=== PATIENT | male | born 1980 | race Caucasian/White ===

== ENCOUNTER 2017-08-02 11:39 | Emergency (ER) | payer MEDICARE ==
[~2017-08-02] VITALS: Ht 167.6 cm; Wt 49.9 kg
[~2017-08-02 11:39] MED LIST: AMOX500 PO; ANTOXYBENA OT; AZIT250 PO; CETI10 PO; CRUTCH2 USE; DICL75ER PO; DIPH50 PO; HYDACE5 PO; Miralax17 GM PO; Norco 5-325 Ta1 EACH PO; OXYACE5T PO; PRED20 PO; PROM25 PO; PROM25S PR; RXHYDACE PO; SULTRIDS PO; VENL37.5ER PO; Zofran Odt4 MG SL
[2017-08-02] MEDS ORDERED: Percocet 5-3251 EACH PO (12:59)
== END 2017-08-02 13:06 | disposition home or self-care (01) ==
LOC: ER 11:39
DX: S02.32XA Fracture of orbital floor, left side, initial encounter for closed fracture (principal); S02.2XXA Fracture of nasal bones, initial encounter for closed fracture; S60.221A Contusion of right hand, initial encounter; Y04.8XXA Assault by other bodily force, initial encounter
CPT/HCPCS: 70450; 73130; 99284

== ENCOUNTER 2017-08-03 03:54 | Emergency (ER) | payer MEDICARE, OTHER ==
[~2017-08-03] VITALS: Ht 162.6 cm; Wt 54.4 kg
[~2017-08-03 03:54] MED LIST changes: +Percocet 5-3251 EACH PO
== END 2017-08-03 05:12 | disposition home or self-care (01) ==
LOC: ER 03:54
DX: S02.32XD Fracture of orbital floor, left side, subsequent encounter for fracture with routine healing (principal); S02.2XXD Fracture of nasal bones, subsequent encounter for fracture with routine healing; Y04.8XXD Assault by other bodily force, subsequent encounter
CPT/HCPCS: 99283

== ENCOUNTER 2017-08-15 10:58 | Emergency (ER) | payer MEDICARE, OTHER ==
[~2017-08-15] VITALS: Ht 167.6 cm; Wt 49.9 kg
[2017-08-15 11:13] LABS: BASOPHILS ABSOLUTE AUTO 0.09 K/mm3 (0.00-0.23); BASOPHILS PERCENT AUTO 1 % (0-2); EOSINOPHILS ABSOLUTE AUTO 0.01 K/mm3 (0.00-0.68); EOSINOPHILS PERCENT AUTO 0 % (0-6); Hematocrit 41.9 % (37.0-53.0); IMMATURE GRAN ABSOLUTE AUTO 0.05 K/mm3 (0.00-0.10); IMMATURE GRAN PERCENT AUTO 0 % (0-1); LYMPHOCYTES PERCENT AUTO 8 % (21-46); MONOCYTES ABSOLUTE AUTO 0.74 K/mm3 (0.16-1.47); MONOCYTES PERCENT AUTO 5 % (4-13); Mean Corpuscular HGB 30.4 pg (26.0-34.0); Mean Corpuscular HGB Conc 33.4 g/dL (31.5-36.5); Mean Corpuscular Volume 91 fL (80-100); Mean Platelet Volume 9.4 fL (9.1-12.4); NEUTROPHILS PERCENT AUTO 86 % (41-73); Platelet Count 557 K/mm3 (150-400); White Blood Cell Count 16.09 K/mm3 (4.00-11.30)
[2017-08-15 11:36] LABS: Prothrombin Time Results 10.4 Sec (9.7-11.5)
[2017-08-15 11:50] LABS: Alanine Aminotransfer (ALT/SGP 29 U/L (12-78); Albumin, Blood 3.5 g/dL (3.4-5.0); Albumin/Globulin Ratio 0.9 (0.8-1.8); Alk Phos 82 U/L (50-136); Anion Gap 8 mmol/L (6-16); Aspartate Aminotrans (AST/SGOT 16 U/L (12-37); Bilirubin, Total 0.5 mg/dL (0.1-1.0); Blood Urea Nitrogen 12 mg/dL (8-24); Bun/Creatinine Ratio 15.1 (12.0-20.0); CO2, Blood 25 mmol/L (21-32); Calcium, Blood 8.8 mg/dL (8.5-10.1); Chloride, Blood 105 mmol/L (98-108); Creatinine, Blood 0.79 mg/dL (0.60-1.20); Globulin, Blood 4.1 g/dL (2.2-4.0); Glomerular Filtration Rate >60 (60-); Glucose, Blood 120 mg/dL (70-99); Potassium, Blood 3.8 mmol/L (3.5-5.5); Sodium, Blood 138 mmol/L (136-145); Total Protein, Blood 7.6 g/dL (6.4-8.2); Troponin I <0.015 ng/mL (0.000-0.040)
== END 2017-08-15 12:11 | disposition short-term general hospital (02) ==
LOC: ER 10:58
PROVIDERS: Emergency Medicine
DX: I63.312 Cerebral infarction due to thrombosis of left middle cerebral artery (principal)
CPT/HCPCS: 36415; 70450; 80053; 84484; 85025; 85610; 85730; 93005; 93010; 99285

== ENCOUNTER 2019-08-04 23:50 | Emergency (ER) | payer MEDICARE, OTHER ==
[~2019-08-04] VITALS: Ht 152.4 cm; Wt 45.4 kg
[2019-08-05 00:28] LABS: PCO2 Arterial 40.7 mmHg (35-45); PO2 Arterial 491 mmHg (80-100)
[2019-08-05 01:56] LABS: BASOPHILS ABSOLUTE AUTO 0.09 K/mm3 (0.00-0.23); BASOPHILS PERCENT AUTO 1 % (0-2); EOSINOPHILS ABSOLUTE AUTO 0.37 K/mm3 (0.00-0.68); EOSINOPHILS PERCENT AUTO 4 % (0-6); Hematocrit 45.9 % (37.0-53.0); Hemoglobin 15.2 g/dL (13.5-17.5); IMMATURE GRAN ABSOLUTE AUTO 0.06 K/mm3 (0.00-0.10); IMMATURE GRAN PERCENT AUTO 1 % (0-1); LYMPHOCYTES ABSOLUTE AUTO 1.42 K/mm3 (0.84-5.20); LYMPHOCYTES PERCENT AUTO 14 % (21-46); MONOCYTES ABSOLUTE AUTO 0.81 K/mm3 (0.16-1.47); MONOCYTES PERCENT AUTO 8 % (4-13); Mean Corpuscular HGB Conc 33.1 g/dL (31.5-36.5); Mean Corpuscular Volume 91 fL (80-100); Mean Platelet Volume 10.7 fL (9.1-12.4); NEUTROPHILS PERCENT AUTO 73 % (41-73); Platelet Count 361 K/mm3 (150-400); RDW Coefficient Variation 14.5 % (11.7-14.2); RDW Standard Deviation 48.2 fL (35.1-46.3); Red Blood Cell Count 5.06 M/mm3 (4.30-5.90); White Blood Cell Count 10.05 K/mm3 (4.00-11.30)
[2019-08-05 02:12] LABS: Alanine Aminotransfer (ALT/SGP 33 U/L (12-78); Albumin, Blood 4.4 g/dL (3.4-5.0); Albumin/Globulin Ratio 1.2 (0.8-1.8); Alk Phos 69 U/L (50-136); Anion Gap 6 mmol/L (6-16); Aspartate Aminotrans (AST/SGOT 31 U/L (12-37); Bilirubin, Total 1.1 mg/dL (0.1-1.0); Blood Urea Nitrogen 17 mg/dL (8-24); Bun/Creatinine Ratio 15.2 (12.0-20.0); CO2, Blood 28 mmol/L (21-32); Calcium, Blood 9.1 mg/dL (8.5-10.1); Chloride, Blood 106 mmol/L (98-108); Creatinine, Blood 1.12 mg/dL (0.60-1.20); Globulin, Blood 3.7 g/dL (2.2-4.0); Glomerular Filtration Rate >60 (60-); Glucose, Blood 87 mg/dL (70-99); Potassium, Blood 4.6 mmol/L (3.5-5.5); Sodium, Blood 140 mmol/L (136-145); Total Protein, Blood 8.1 g/dL (6.4-8.2)
== END 2019-08-05 01:54 | disposition short-term general hospital (02) ==
LOC: ER 23:50
PROVIDERS: Physician Assistant
DX: T59.91XA Toxic effect of unspecified gases, fumes and vapors, accidental (unintentional), initial encounter (principal); J96.90 Respiratory failure, unspecified, unspecified whether with hypoxia or hypercapnia
CPT/HCPCS: 31500; 31720; 36600; 71045; 80053; 82375; 82803; 85025; 94002; 96374; 96375; 96376; 99285-25; J0330; J2704; J3010; J7030

== ENCOUNTER 2020-10-22 13:22 | Inpatient (IN) | payer MEDICARE, OTHER ==
[~2020-10-22] VITALS: Ht 162.6 cm; Wt 51.0 kg
[2020-10-22 14:13] LABS: BASOPHILS ABSOLUTE AUTO 0.08 K/mm3 (0.00-0.23); BASOPHILS PERCENT AUTO 0 % (0-2); EOSINOPHILS PERCENT AUTO 0 % (0-6); Hematocrit 42.6 % (37.0-53.0); Hemoglobin 14.6 g/dL (13.5-17.5); IMMATURE GRAN ABSOLUTE AUTO 0.13 K/mm3 (0.00-0.10); IMMATURE GRAN PERCENT AUTO 1 % (0-1); LYMPHOCYTES ABSOLUTE AUTO 0.56 K/mm3 (0.84-5.20); LYMPHOCYTES PERCENT AUTO 3 % (21-46); MONOCYTES ABSOLUTE AUTO 0.78 K/mm3 (0.16-1.47); MONOCYTES PERCENT AUTO 4 % (4-13); Mean Corpuscular HGB 29.9 pg (26.0-34.0); Mean Corpuscular HGB Conc 34.3 g/dL (31.5-36.5); Mean Corpuscular Volume 87 fL (80-100); Mean Platelet Volume 10.7 fL (9.1-12.4); NEUTROPHILS ABSOLUTE AUTO 18.37 K/mm3 (1.96-9.15); NEUTROPHILS PERCENT AUTO 92 % (41-73); Platelet Count 282 K/mm3 (150-400); RDW Coefficient Variation 14.2 % (11.7-14.2); RDW Standard Deviation 45.5 fL (35.1-46.3); Red Blood Cell Count 4.88 M/mm3 (4.30-5.90); White Blood Cell Count 19.92 K/mm3 (4.00-11.30)
[2020-10-22 14:44] LABS: Albumin, Blood 3.4 g/dL (3.4-5.0); Albumin/Globulin Ratio 0.6 (0.8-1.8); Bilirubin, Total 0.8 mg/dL (0.1-1.0); Bun/Creatinine Ratio 10.7 (12.0-20.0); Calcium, Blood 9.4 mg/dL (8.5-10.1); Creatinine, Blood 1.4 mg/dL (0.60-1.20); Globulin, Blood 5.7 g/dL (2.2-4.0); Potassium, Blood 4.1 mmol/L (3.5-5.5); Total Protein, Blood 9.1 g/dL (6.4-8.2)
[2020-10-22 15:03] LABS: Source, Urine Clean Catch
[2020-10-22 15:36] LABS: Appearance, Urine Clear (Clear); Bilirubin, Urine Neg (Neg); Blood, Urine 5+ (Neg); Color, Urine Yellow (P-Yellow); Glucose Qualitative, Urine Neg (Neg); Ketones, Urine Neg (Neg); Leukocyte Esterase, Urine Neg (Neg); Nitrite, Urine Neg (Neg); Protein, Urine 3+ (Neg); Urobilinogen, Urine 2+ (Normal)
[2020-10-22 16:04] LABS: Bacteria Mod /hpf; Mucus Light (0-Heavy); Red Blood Cells, Urine 0-2 /hpf (0-2); Squamous Epithelial Cells Rare /hpf (Few); White Blood Cells, Urine 0-2 /hpf (0-5)
[2020-10-22 20:51] LABS: Adenovirus Not Detected (NOT DETECT); Bordetella pertussis Not Detected (NOT DETECT); Chlamydophila pneumoniae Not Detected (NOT DETECT); Coronavirus 229E Not Detected (NOT DETECT); Coronavirus HKU1 Not Detected (NOT DETECT); Coronavirus NL63 Not Detected (NOT DETECT); Coronavirus OC43 Not Detected (NOT DETECT); Human Metapneumovirus Not Detected (NOT DETECT); Human Rhinovirus/Enterovirus Not Detected (NOT DETECT); Influenza A/2009-H1 Not Detected (NOT DETECT); Influenza A/H1 Not Detected (NOT DETECT); Influenza A/H3 Not Detected (NOT DETECT); Influenza B Not Detected (NOT DETECT); Mycoplasma pneumoniae Not Detected (NOT DETECT); Parainfluenza Virus 1 Not Detected (NOT DETECT); Parainfluenza Virus 2 Not Detected (NOT DETECT); Parainfluenza Virus 3 Not Detected (NOT DETECT); Parainfluenza Virus 4 Not Detected (NOT DETECT); Respiratory Syncytial Virus Not Detected (NOT DETECT); SARS-Cov-2 (COVID-19), BioFire Not Detected (NOT DETECT)
[2020-10-22 21:09] LABS: Anion Gap 5 mmol/L (6-16); Blood Urea Nitrogen 14 mg/dL (8-24); CO2, Blood 23 mmol/L (21-32); Calcium, Blood 7.2 mg/dL (8.5-10.1); Chloride, Blood 108 mmol/L (98-108); Creatinine, Blood 1.17 mg/dL (0.60-1.20); Glomerular Filtration Rate >60 (60-); Glucose, Blood 113 mg/dL (70-99); Potassium, Blood 4.2 mmol/L (3.5-5.5); Sodium, Blood 136 mmol/L (136-145)
[2020-10-23 05:57] LABS: Hematocrit 36.2 % (37.0-53.0); Hemoglobin 12.2 g/dL (13.5-17.5); Mean Corpuscular HGB 29.5 pg (26.0-34.0); Mean Corpuscular HGB Conc 33.7 g/dL (31.5-36.5); Mean Corpuscular Volume 87 fL (80-100); Platelet Count 317 K/mm3 (150-400); RDW Coefficient Variation 14.7 % (11.7-14.2); RDW Standard Deviation 47.2 fL (35.1-46.3); Red Blood Cell Count 4.14 M/mm3 (4.30-5.90)
[2020-10-23 06:20] LABS: Anion Gap 5 mmol/L (6-16); Blood Urea Nitrogen 13 mg/dL (8-24); CO2, Blood 25 mmol/L (21-32); Chloride, Blood 109 mmol/L (98-108); Glomerular Filtration Rate >60 (60-); Glucose, Blood 102 mg/dL (70-99); Potassium, Blood 4.3 mmol/L (3.5-5.5); Sodium, Blood 139 mmol/L (136-145)
[2020-10-23 06:47] LABS: BAND PERCENT MAN 25 % (0-8); BASOPHILS PERCENT MAN 0 % (0-2); EOSINOPHILS PERCENT MAN 0 % (0-6); LYMPHOCYTES ABSOLUTE MAN 0.26 K/mm3 (0.84-5.20); LYMPHOCYTES PERCENT MAN 2 % (21-46); MONOCYTES ABSOLUTE MAN 0.26 K/mm3 (0.16-1.47); MONOCYTES PERCENT MAN 2 % (4-13); NEUTROPHILS ABSOLUTE MAN 12.76 K/mm3 (1.96-9.15); SEG NEUTROPHILS PERCENT MAN 71 % (41-73); TOTAL CELLS COUNTED 100
--- NOTE | 2020-10-23 15:58 | NUR ---
ADMIT TO ICU: PT ALERT AND ORIENTED X4. DRINKING A SODA UPPON ARRIVAL AND VERY TALKATIVE. USED SLIDE SHEET TO TRANSFER OVER. VITAL SIGNS STABLE WITH TEMP 100.4. ON ROOM AIR SATING HIGH 90'S. DENIES SOB, LUNGS SOUNDING CLEAR. TELE SHOWING SINUS TACH WITH HR 110'S. DENIES CHEST PAIN/PRESSURE. BOWEL TONES HEARD. ABDOMEN FIRM. SKIN PALE WITH 2 ABRASIONS TO LEFT UPPER ARM. CLEANED AND COVERED WITH GAUZE. CENTRAL LINE WNL. IV FLUIDS INFUSING. IV TO LEFT AC SALINE LOCKED AND FLUSHING WELL. TEMP RODRIGUEZ IN PLACE, DRAINING DARK YELLOW/CLEAR URINE TO GRAVITY. UPON ADMISSION QUESTIONS PATIENT NOT A GREAT HISTORIAN WOULD SAY NO TO QUESTIONS AND THEN UPON ASKING AGAIN WOULD SAY YES. 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 ORIENTED TO ROOM AND UNIT. CALL LIGHT IN REACH. BED ALARM ON FOR SAFETY. WILL CONTINUE TO MONITOR.
--- NOTE | 2020-10-23 16:01 | NUR ---
TEMP AT 102. CALL PLACED TO DR. CHAN, NEW ORDERS. WILL CONTINUE TO MONITOR.
--- NOTE | 2020-10-23 19:27 | NUR ---
TEMP DECREASING NOW AT 99.5. DENIES PAIN. VITAL SIGNS REMAIN STABLE. NO ACUTE CHANGES. LABS DRAWN, ANTIBIOTICS INFUSED, AND NORMAL SALINE INFUSING. SEE PREVIOUS NOTES FOR UPDATES. PATIENTS MOM CALLED AND VERIFIED PT DOES NOT TAKE ANY MEDICATIONS AT HOME AND SINCE HIS CVA HE AT TIMES GETS WORDS MIXED UP AND CAN BE CONFUSED. PT ABLE TO ANSWER ALL ORIENTING QUESTIONS APPROPRIATLY BUT THEN CHANGES ANSWER. PT ABLE TO EAT DINNER. SLEEPING AT THIS TIME. CALL LIGHT IN REACH. REPORTED OFF TO ONCOMING RN.
--- NOTE | 2020-10-23 19:50 | NUR ---
ASSUMED CARE OF PATIENT AT APPROXIMATELY 1905 FROM ELINOR Borrero RN. PATIENT ALERT AND ORIENTED TO SELF, , LOCATION AND EVENT. PATIENT UNABLE TO STATE DATE. PATIENT DENIES NUMBNESS, TINGLING, DIZZINESS, NAUSEA OR LIGHTHEADEDNESS. NSR ON HEART MONITOR; OXYGEN SATUATION ABOVE 90% ON ROOM AIR. IVF INFUSING INTO CENTRAL LINE ON RIGHT. PIV S/L. BP SOFT AT START OF SHIFT BUT PATIENT WAS SLEEPING ON LEFT SIDE AND BP CUFF ON RIGHT.
[2020-10-24 05:49] LABS: BASOPHILS ABSOLUTE AUTO 0.01 K/mm3 (0.00-0.23); BASOPHILS PERCENT AUTO 0 % (0-2); Hematocrit 33.2 % (37.0-53.0); Hemoglobin 11.4 g/dL (13.5-17.5); LYMPHOCYTES ABSOLUTE AUTO 0.43 K/mm3 (0.84-5.20); LYMPHOCYTES PERCENT AUTO 5 % (21-46); MONOCYTES ABSOLUTE AUTO 0.11 K/mm3 (0.16-1.47); MONOCYTES PERCENT AUTO 1 % (4-13); Mean Corpuscular HGB 29.5 pg (26.0-34.0); Mean Corpuscular HGB Conc 34.3 g/dL (31.5-36.5); Mean Corpuscular Volume 86 fL (80-100); Mean Platelet Volume 11.1 fL (9.1-12.4); Platelet Count 294 K/mm3 (150-400); RDW Coefficient Variation 14.8 % (11.7-14.2); RDW Standard Deviation 46.9 fL (35.1-46.3); Red Blood Cell Count 3.86 M/mm3 (4.30-5.90); White Blood Cell Count 9.56 K/mm3 (4.00-11.30)
[2020-10-24 05:53] LABS: EOSINOPHILS PERCENT AUTO 0 % (0-6); IMMATURE GRAN PERCENT AUTO 1 % (0-1); NEUTROPHILS ABSOLUTE AUTO 8.91 K/mm3 (1.96-9.15); NEUTROPHILS PERCENT AUTO 93 % (41-73)
[2020-10-24 06:25] LABS: Free Thyroxine 0.97 ng/dL (0.70-1.60)
[2020-10-24 06:34] LABS: Alanine Aminotransfer (ALT/SGP 104 U/L (12-78); Albumin, Blood 1.8 g/dL (3.4-5.0); Albumin/Globulin Ratio 0.5 (0.8-1.8); Alk Phos 166 U/L (50-136); Anion Gap 5 mmol/L (6-16); Aspartate Aminotrans (AST/SGOT 90 U/L (12-37); Bilirubin, Total 0.4 mg/dL (0.1-1.0); Blood Urea Nitrogen 10 mg/dL (8-24); Bun/Creatinine Ratio 12.8 (12.0-20.0); CO2, Blood 27 mmol/L (21-32); Calcium, Blood 7.9 mg/dL (8.5-10.1); Chloride, Blood 110 mmol/L (98-108); Creatinine, Blood 0.78 mg/dL (0.60-1.20); Globulin, Blood 3.8 g/dL (2.2-4.0); Glomerular Filtration Rate >60 (60-); Glucose, Blood 150 mg/dL (70-99); Potassium, Blood 3.6 mmol/L (3.5-5.5); Sodium, Blood 142 mmol/L (136-145); Total Protein, Blood 5.6 g/dL (6.4-8.2)
--- NOTE | 2020-10-24 06:37 | NUR ---
PATIENT SLEPT ABOUT NINE HOURS; COMPLAINED OF HEADACHED; TYLENOL GIVEN; ABLE TO FALL BACK ASLEEP. TURNED SELF IN BED. NO ACUTE CHANGES TO REPORT. VSS.
--- NOTE | 2020-10-24 08:54 | NUR ---
TRANSFER PT STATES HE IS FEELING BETTER THIS MORNING AND ASKING WHEN HE CAN GO HOME. INFORMED HIM THAT HE NEEDS TO STAY FOR ANTIBIOTICS, BUT HE CAN DISCUSS LENGTH OF STAY WITH THE DOCTOR. PT'S BP IS STABLE THIS MORNING, UO GOOD WITH 400ML OUT ALREADY. PT ONLY ATE A SMALL AMT OF BREAKFAST BECAUSE HE SAYS IT DOESN'T TASTE GOOD. GAVE PT HIS MENU TO TRY AND FIND SOMETHING MORE APPETIZING FOR LUNCH. PT IS REQUESTING HIS RODRIGUEZ OUT. SPOKE WITH DR. CHAN AND HE OK'D RODRIGUEZ TO COME OUT. HE ALSO GAVE OK FOR PT TO BE MEDICAL WITH TELE AT FIRST BUT THEN AFTER SEEING PT DECIDED HE COULD BE MEDICAL WITHOUT TELE. REPORT CALLED TO [address]. PT TRANSFERRED TO 329 VIA WITH AIDE. RODRIGUEZ REMOVED PRIOR TO TRANSFER AND PT TOLERATED WELL.
--- NOTE | 2020-10-24 18:35 | NUR ---
SHIFT SUMMARY- PT IS A/O, PLESANT AND COOPERATIVE. HE IS EATING AND DRINKING WELL. HIS MOTHER BROUGHT IN FOOD FOR HIM THIS AFTERNOON. HE IS RECIEVING IV ABX AND IV FLUIDS. HE IS AMBULATING TO THE RESTROOM. HIS BED IS IN THE LOW POSITION AND CALL LIGHT IS WITIN REACH.
[2020-10-25 04:50] LABS: BASOPHILS ABSOLUTE AUTO 0.03 K/mm3 (0.00-0.23); BASOPHILS PERCENT AUTO 0 % (0-2); Hematocrit 30.9 % (37.0-53.0); Hemoglobin 10.5 g/dL (13.5-17.5); LYMPHOCYTES ABSOLUTE AUTO 1.02 K/mm3 (0.84-5.20); LYMPHOCYTES PERCENT AUTO 6 % (21-46); MONOCYTES ABSOLUTE AUTO 0.85 K/mm3 (0.16-1.47); MONOCYTES PERCENT AUTO 5 % (4-13); Mean Corpuscular HGB 29.2 pg (26.0-34.0); Mean Corpuscular Volume 86 fL (80-100); Platelet Count 339 K/mm3 (150-400); RDW Coefficient Variation 14.8 % (11.7-14.2); Red Blood Cell Count 3.59 M/mm3 (4.30-5.90); White Blood Cell Count 17.28 K/mm3 (4.00-11.30)
[2020-10-25 04:53] LABS: EOSINOPHILS PERCENT AUTO 0 % (0-6); IMMATURE GRAN PERCENT AUTO 1 % (0-1); NEUTROPHILS ABSOLUTE AUTO 15.18 K/mm3 (1.96-9.15); NEUTROPHILS PERCENT AUTO 88 % (41-73)
[2020-10-25 05:19] LABS: Alanine Aminotransfer (ALT/SGP 119 U/L (12-78); Albumin, Blood 2.1 g/dL (3.4-5.0); Albumin/Globulin Ratio 0.5 (0.8-1.8); Alk Phos 157 U/L (50-136); Anion Gap 6 mmol/L (6-16); Aspartate Aminotrans (AST/SGOT 86 U/L (12-37); Bilirubin, Total 0.2 mg/dL (0.1-1.0); Blood Urea Nitrogen 11 mg/dL (8-24); CO2, Blood 30 mmol/L (21-32); Calcium, Blood 8.1 mg/dL (8.5-10.1); Chloride, Blood 108 mmol/L (98-108); Creatinine, Blood 0.79 mg/dL (0.60-1.20); Glomerular Filtration Rate >60 (60-); Glucose, Blood 145 mg/dL (70-99); Potassium, Blood 2.8 mmol/L (3.5-5.5); Sodium, Blood 144 mmol/L (136-145); Total Protein, Blood 6.1 g/dL (6.4-8.2)
--- NOTE | 2020-10-25 05:57 | NUR ---
SHIFT SUMMARY- PT. WITH COMPLAINT OF KAUFMAN LAST NIGHT. MEDICATED PER EMAR WITH GOOD EFFECT. SHOWERED LAST NIGHT. PT. RESTED QUIETLY T/O THE NIGHT, NO APPARENT DISTRESS NOTED. AMBULATES INDEPENDENTY IN ROOM AND TO BATHROOM W/O DIFFICULTY. NOTED THIS AM BIO PATCH TO SUBCLAVIAN CENTRAL LINE SATURATED WITH BLOOD. LINE ACCESS APPEARS WNL AND ABLE TO DRAW BLOOD. PT. HAS NO COMPLAINTS. GOLF COURSE SUPERINTENDENT'S MEET MADE AWARE. PERFORMED DRESSING CHANGE, APPLIED NEW BIO PATCH. PT. TOLERATED WELL. WILL CONT TO MONITOR CENTRAL. PT. LAYING IN BED RESTING QUIETLY AT THIS TIME, DENIES NEEDS. CALL LIGHT WITHIN REACH.
--- NOTE | 2020-10-25 06:20 | NUR ---
CENTRAL LINE TO R SUBCLAVIAN DSG C/D/I SINCE AM CHANGE, NO BLOOD NOTED TO BIO PATCH. PT. CONTS RESTING QUIETLY IN BED, NO APPARENT DISTRESS NOTED. CALL LIGHT WITHIN REACH AND SIDE RAILS UPX2.
--- NOTE | 2020-10-25 18:29 | NUR ---
SHIFT SUMMARY- PT IS A/O, PLESANT AND COOPERATIVE. HE IS EATING AND DRINKING WELL. HE AMBULATED IN THE HUGO THIS AFTERNOON. HE C/O PAIN IN HIS GROIN APPLIED ICE AND HAD HIM STRETCH. HE SLEPT INTERMITENTLY THROUGHOUT THIS SHIFT. HIS BED IS IN THE LOW POSITION AND CALL LIGHT IS WITHIN REACH.
--- NOTE | 2020-10-26 04:40 | NUR ---
SHIFT SUMMARY- NO ACUTE EVENTS OVERNIGHT. PT. C/O GENERALIZED AND L SIDED PAIN. MEDICATED PER EMAR WITH GOOD EFFECT. SLEPT T/O THE NIGHT, VSS, AND NO APPARENT DISTRESS NOTED. CALL LIGHT WITHIN REACH AND SIDE RAILS UPX2. WILL CONT TO MONITOR.
[2020-10-26 05:35] LABS: BASOPHILS ABSOLUTE AUTO 0.05 K/mm3 (0.00-0.23); BASOPHILS PERCENT AUTO 0 % (0-2); EOSINOPHILS PERCENT AUTO 0 % (0-6); Hematocrit 29.3 % (37.0-53.0); Hemoglobin 9.9 g/dL (13.5-17.5); IMMATURE GRAN PERCENT AUTO 3 % (0-1); LYMPHOCYTES ABSOLUTE AUTO 1.58 K/mm3 (0.84-5.20); LYMPHOCYTES PERCENT AUTO 10 % (21-46); MONOCYTES ABSOLUTE AUTO 1.08 K/mm3 (0.16-1.47); MONOCYTES PERCENT AUTO 7 % (4-13); Mean Corpuscular HGB 29.4 pg (26.0-34.0); Mean Corpuscular HGB Conc 33.8 g/dL (31.5-36.5); Mean Corpuscular Volume 87 fL (80-100); NEUTROPHILS ABSOLUTE AUTO 13.08 K/mm3 (1.96-9.15); NEUTROPHILS PERCENT AUTO 81 % (41-73); NRBC ABSOLUTE 0.03 K/mm3 (0.00-0.02); NRBC Auto 0.2 /100 WBC (0.0-0.2); Platelet Count 372 K/mm3 (150-400); RDW Coefficient Variation 15.1 % (11.7-14.2); RDW Standard Deviation 47.9 fL (35.1-46.3); Red Blood Cell Count 3.37 M/mm3 (4.30-5.90); White Blood Cell Count 16.19 K/mm3 (4.00-11.30)
[2020-10-26 06:00] LABS: Anion Gap 5 mmol/L (6-16); Blood Urea Nitrogen 9 mg/dL (8-24); Bun/Creatinine Ratio 11.3 (12.0-20.0); CO2, Blood 34 mmol/L (21-32); Calcium, Blood 7.9 mg/dL (8.5-10.1); Chloride, Blood 103 mmol/L (98-108); Glomerular Filtration Rate >60 (60-); Glucose, Blood 98 mg/dL (70-99); Potassium, Blood 2.8 mmol/L (3.5-5.5); Sodium, Blood 142 mmol/L (136-145)
--- NOTE | 2020-10-26 08:27 | NUR ---
RODRIGUEZ RODRIGUEZ DISCONTINUED 10/24/20 IN ICU PRIOR TO TRANSFER TO ROOM 329.
[2020-10-26] MEDS ORDERED: VISBIOME 112.51 EACH PO (11:16)
[2020-10-26] MEDS ORDERED: HYDCOR20 PO (11:16)
[2020-10-26] MEDS ORDERED: CEPH500 PO (11:16)
[2020-10-26] MEDS ORDERED: Klor-Con M1010 MEQ PO (11:16)
--- NOTE | 2020-10-26 12:12 | NUR ---
DISCHARGE DISCHARGE INSTRUCTIONS, MEDICATAION LIST AND FOLLOW UP APPOINTMENT REVIEWED WITH PT AND HIS MOTHER, QUESTIONS/CONCERNS ANSWERED. PT AND MOTHER VERBALLY INDICATED UNDERSTANDING OF ALL INSTRUCTIONS RECEIVED. PT ESCORTED OUT BY FILTER HELPER VIA W/C
== END 2020-10-26 12:15 | disposition home or self-care (01) | DRG 871 ==
LOC: ER 13:22 → ERHOLD 17:55 → ICUW 10-23 12:37 → MEDS 10-24 08:51 → ENPENDDIS 10-26 10:16 → MEDS 10-26 12:15
PROVIDERS: Emergency Medicine; Internal Medicine; Physician Assistant; ADMIT Hospitalist
PROC: 3E033XZ Introduction of Vasopressor into Peripheral Vein, Percutaneous Approach (ICD-10-PCS; principal; 2020-10-22)
PROC: 3E0234Z Introduction of Serum, Toxoid and Vaccine into Muscle, Percutaneous Approach (ICD-10-PCS; 2020-10-25)
DX: A40.0 Sepsis due to streptococcus, group A (principal); N17.0 Acute kidney failure with tubular necrosis; G93.41 Metabolic encephalopathy; R65.21 Severe sepsis with septic shock; E87.1 Hypo-osmolality and hyponatremia; E27.40 Unspecified adrenocortical insufficiency; Z20.822 Contact with and (suspected) exposure to COVID-19; E87.6 Hypokalemia; R74.01 Elevation of levels of liver transaminase levels; R50.9 Fever, unspecified; Z90.81 Acquired absence of spleen; Z79.899 Other long term (current) drug therapy; Z98.890 Other specified postprocedural states; Z23 Encounter for immunization; Z90.89 Acquired absence of other organs; Z85.71 Personal history of Hodgkin lymphoma
CPT/HCPCS: 0202U; 36415; 36556; 51702; 71045; 74177; 80048; 80053; 80202; 80400; 81001; 82533; 83605; 84146; 84439; 85025; 87040; 87086; 87147; 90732; 96365-59; 96366-59; 96367-59; 96375-59; 96376; 96376-59; 99285-25; A9270; C1751; G0009; J0295; J0834; J1650; J1720; J1885; J2185; J3370; J7030; J7050; Q9967

== ENCOUNTER 2023-02-25 01:47 | Emergency (ER) | payer MEDICARE, OTHER ==
[~2023-02-25] VITALS: Ht 162.6 cm; Wt 49.9 kg
[~2023-02-25 01:47] MED LIST changes: +CEPH500 PO; +HYDCOR20 PO; +Klor-Con M1010 MEQ PO; +VISBIOME 112.51 EACH PO
[2023-02-25 06:30] VITALS: BP 115/87
[2023-02-25] MEDS ORDERED: CLIN300 PO (06:57)
[2023-02-25] MEDS ORDERED: OXAYDO5 M1 PO (06:57)
== END 2023-02-25 07:07 | disposition home or self-care (01) ==
LOC: ER 01:47
DX: S02.621A Fracture of subcondylar process of right mandible, initial encounter for closed fracture (principal); S02.5XXA Fracture of tooth (traumatic), initial encounter for closed fracture; Y04.8XXA Assault by other bodily force, initial encounter
CPT/HCPCS: 70450; 70486; 96372; 99284-25; A9270; J1885

== ENCOUNTER 2023-05-24 23:48 | Emergency (ER) | payer OTHER, MEDICARE ==
[~2023-05-24] VITALS: Ht 157.5 cm; Wt 54.4 kg
[2023-05-24 23:48] VITALS: BP 160/84
[~2023-05-24 23:48] MED LIST changes: +CLIN300 PO; +OXAYDO5 M1 PO
[2023-05-25 00:13] LABS: BASOPHILS ABSOLUTE AUTO 0.06 K/mm3 (0.00-0.23); BASOPHILS PERCENT AUTO 1 % (0-2); EOSINOPHILS ABSOLUTE AUTO 0.12 K/mm3 (0.00-0.68); EOSINOPHILS PERCENT AUTO 1 % (0-6); Hematocrit 43.1 % (37.0-53.0); Hemoglobin 14.6 g/dL (13.5-17.5); IMMATURE GRAN ABSOLUTE AUTO 0.03 K/mm3 (0.00-0.10); IMMATURE GRAN PERCENT AUTO 0 % (0-1); LYMPHOCYTES ABSOLUTE AUTO 1.54 K/mm3 (0.84-5.20); LYMPHOCYTES PERCENT AUTO 12 % (21-46); MONOCYTES ABSOLUTE AUTO 0.91 K/mm3 (0.16-1.47); MONOCYTES PERCENT AUTO 7 % (4-13); Mean Corpuscular HGB Conc 33.9 g/dL (31.5-36.5); Mean Corpuscular Volume 89 fL (80-100); Mean Platelet Volume 10.1 fL (9.1-12.4); NEUTROPHILS ABSOLUTE AUTO 9.82 K/mm3 (1.96-9.15); NEUTROPHILS PERCENT AUTO 79 % (41-73); Platelet Count 348 K/mm3 (150-400); RDW Coefficient Variation 14.5 % (11.7-14.2); RDW Standard Deviation 46.5 fL (35.1-46.3); Red Blood Cell Count 4.86 M/mm3 (4.30-5.90); White Blood Cell Count 12.48 K/mm3 (4.00-11.30)
[2023-05-25 00:30] LABS: International Normalized Ratio 0.95
[2023-05-25 00:34] LABS: Alanine Aminotransfer (ALT/SGP 43 U/L (12-78); Albumin, Blood 4.2 g/dL (3.4-5.0); Albumin/Globulin Ratio 1.1 (0.8-1.8); Alk Phos 69 U/L (50-136); Anion Gap 4 mmol/L (6-16); Aspartate Aminotrans (AST/SGOT 23 U/L (12-37); Bilirubin, Total 0.7 mg/dL (0.1-1.0); Blood Urea Nitrogen 19 mg/dL (8-24); Bun/Creatinine Ratio 17.1 (12.0-20.0); CO2, Blood 31 mmol/L (21-32); Calcium, Blood 9.8 mg/dL (8.5-10.1); Chloride, Blood 105 mmol/L (98-108); Creatinine, Blood 1.11 mg/dL (0.60-1.20); Ethanol (Alcohol), Blood, Med <3 mg/dL; Globulin, Blood 3.8 g/dL (2.2-4.0); Glomerular Filtration Rate 86 (60-); Glucose, Blood 112 mg/dL (70-99); Potassium, Blood 3.9 mmol/L (3.5-5.5); Sodium, Blood 140 mmol/L (136-145)
[2023-05-25 01:50] LABS: Source, Urine Clean Catch
[2023-05-25 01:55] LABS: Bilirubin, Urine Neg (Neg); Blood, Urine Neg (Neg); Glucose Qualitative, Urine Neg (Neg); Ketones, Urine Neg (Neg); Leukocyte Esterase, Urine Neg (Neg); Nitrite, Urine Neg (Neg); Protein, Urine Neg (Neg); Specific Gravity, Urine 1.005 (1.003-1.022); Urobilinogen, Urine NORM (Normal)
[2023-05-25 02:41] LABS: U Amphetamine Screen DETECTED; U Barbituate Screen Not Detected; U Benzodiazapine Screen Not Detected; U Buprenorphine Screen Not Detected; U Cannabinoids Screen DETECTED; U Cocaine Screen Not Detected; U Methadone Screen Not Detected; U Methamphetamine Screen DETECTED; U Opiates Screen Not Detected; U Oxycodone Screen DETECTED; U Phencyclidine Screen Not Detected
[2023-05-25 02:42] LABS: Appearance, Urine Clear (Clear); Color, Urine Pale Yellow (P-Yellow)
== END 2023-05-25 03:11 | disposition home or self-care (01) ==
LOC: ER 23:48
PROVIDERS: Emergency Medicine
DX: Z04.1 Encounter for examination and observation following transport accident (principal); E86.0 Dehydration; F19.10 Other psychoactive substance abuse, uncomplicated; V48.0XXA Car driver injured in noncollision transport accident in nontraffic accident, initial encounter; Y92.410 Unspecified street and highway as the place of occurrence of the external cause
CPT/HCPCS: 36415; 70450; 71250; 71260; 72125; 74176; 74177; 80053; 81003; 83605; 84443; 84484; 85025; 85610; 85730; 93005; 93010; 99284-25; J2405; J7030; Q9967

== ENCOUNTER 2023-08-15 06:54 | Observation (INO) | payer MEDICARE, OTHER ==
[~2023-08-15] VITALS: Ht 162.6 cm; Wt 49.8 kg
[2023-08-15] MEDS ORDERED: Ondansetron HCl 2 MG / ML 2ML Vial IV ONE (07:30)
[2023-08-15] MEDS ORDERED: Ketorolac Tromethamine 30mg Vial IV ONE (07:30)
[2023-08-15 07:51] LABS: BASOPHILS ABSOLUTE AUTO 0.08 K/mm3 (0.00-0.23); BASOPHILS PERCENT AUTO 1 % (0-2); EOSINOPHILS ABSOLUTE AUTO 0.07 K/mm3 (0.00-0.68); EOSINOPHILS PERCENT AUTO 1 % (0-6); Hematocrit 40.2 % (37.0-53.0); Hemoglobin 13.6 g/dL (13.5-17.5); IMMATURE GRAN ABSOLUTE AUTO 0.04 K/mm3 (0.00-0.10); IMMATURE GRAN PERCENT AUTO 0 % (0-1); LYMPHOCYTES ABSOLUTE AUTO 1.02 K/mm3 (0.84-5.20); LYMPHOCYTES PERCENT AUTO 9 % (21-46); MONOCYTES ABSOLUTE AUTO 0.62 K/mm3 (0.16-1.47); MONOCYTES PERCENT AUTO 6 % (4-13); Mean Corpuscular HGB 30.3 pg (26.0-34.0); Mean Corpuscular HGB Conc 33.8 g/dL (31.5-36.5); Mean Corpuscular Volume 90 fL (80-100); Mean Platelet Volume 10.2 fL (9.1-12.4); NEUTROPHILS PERCENT AUTO 84 % (41-73); Platelet Count 317 K/mm3 (150-400); RDW Coefficient Variation 14.7 % (11.7-14.2); RDW Standard Deviation 48.3 fL (35.1-46.3); Red Blood Cell Count 4.49 M/mm3 (4.30-5.90); White Blood Cell Count 11.33 K/mm3 (4.00-11.30)
[2023-08-15 08:09] LABS: Albumin, Blood 4.6 g/dL (3.4-5.0); Albumin/Globulin Ratio 1.3 (0.8-1.8); Bilirubin, Total 0.9 mg/dL (0.1-1.0); Bun/Creatinine Ratio 16.7 (12.0-20.0); Calcium, Blood 10.4 mg/dL (8.5-10.1); Creatinine, Blood 1.26 mg/dL (0.60-1.20); Globulin, Blood 3.6 g/dL (2.2-4.0); Total Protein, Blood 8.2 g/dL (6.4-8.2)
[2023-08-15 09:19] LABS: Source, Urine Voided
[2023-08-15 09:23] LABS: Appearance, Urine Clear (Clear); Bilirubin, Urine Neg (Neg); Blood, Urine Neg (Neg); Color, Urine Yellow (P-Yellow); Glucose Qualitative, Urine Neg (Neg); Ketones, Urine 1+ (Neg); Leukocyte Esterase, Urine Neg (Neg); Nitrite, Urine Neg (Neg); Protein, Urine Neg (Neg); Specific Gravity, Urine 1.015 (1.003-1.022); Urobilinogen, Urine NORM (Normal)
[2023-08-15 12:08] LABS: Anti-Xa UFH, PHA Monitoring <0.10 IU/mL; International Normalized Ratio 0.95; Prothrombin Time Results 10.2 Sec (9.7-11.5)
[2023-08-15] MEDS ORDERED: Dose Adjust by Pharmacy XX STA ×2 (12:11→21:00)
[2023-08-15] MEDS ORDERED: OxyCODONE HCL 5 MG TAB PO PRN (12:15)
[2023-08-15] MEDS ORDERED: Heparin Sodium,Porcine/0.5 NS 500 ML IV SCH (12:15)
[2023-08-15] MEDS ORDERED: Heparin Sodium 5000 Units/ML 1ML MDV IV ONE (12:15)
[2023-08-15 12:56] VITALS: BP 117/77
[2023-08-15] MEDS ORDERED: Acetaminophen 325 MG TABLET PO PRN (13:15)
[2023-08-15] MEDS ORDERED: Lactated Ringer's 1,000 ML IV SCH (14:00)
[2023-08-15 14:10] LABS: CHOL/HDL RATIO 3.1; Cholesterol 169 mg/dL (50-200); HDL Cholesterol 55 mg/dL (>39); LDL/HDL RATIO 1.9; Lactate Dehydrogenase (Ld),Bld 416 U/L (100-240); Low Density Lipoprotein Chol 105 mg/dL (0-110); Triglycerides 45 mg/dL (30-160); Very Low Density Lipoprot Chol 9 mg/dL (6-32)
[2023-08-15 14:53] VITALS: BP 122/82
--- NOTE | 2023-08-15 18:25 | NUR ---
REPORT RECIEVED VERIFIED, A/O QUIET AND PLEASENT WITH A LONG HISTORY, ADMISSION DONE, MOTHER HAD TO HELP OVER THE PHONE PT IS A POOR HISTORIAN AND A LITTLE DELAYED IN SPEECH DUE TO HX OF CVA. POOR IV ACCESS AND HEPARIN IS INFUSING. NEED ADDITIONAL IV FOR FLUIDS BUT PHARMACY STATED I COULD RUNWITH HEPARIN. CRITICAL LA CALLED INTO MD AND REDRAW SHOWED NOW WITHIN NORMAL RANGE
[2023-08-15 19:49] VITALS: BP 107/77
--- NOTE | 2023-08-15 20:37 | NUR ---
CALL FROM PHARMACY TO PAUSE HEPARIN GTT FOR 1 HOUR THEN RESTART AT LOWER RATE. PAUSED AT 2036. CONTINUING TO MONITOR.
[2023-08-16 03:31] VITALS: BP 109/68
[2023-08-16 04:43] LABS: BASOPHILS ABSOLUTE AUTO 0.11 K/mm3 (0.00-0.23); BASOPHILS PERCENT AUTO 1 % (0-2); EOSINOPHILS ABSOLUTE AUTO 0.28 K/mm3 (0.00-0.68); EOSINOPHILS PERCENT AUTO 3 % (0-6); Hematocrit 40.1 % (37.0-53.0); Hemoglobin 13.6 g/dL (13.5-17.5); IMMATURE GRAN ABSOLUTE AUTO 0.02 K/mm3 (0.00-0.10); IMMATURE GRAN PERCENT AUTO 0 % (0-1); LYMPHOCYTES ABSOLUTE AUTO 1.66 K/mm3 (0.84-5.20); LYMPHOCYTES PERCENT AUTO 15 % (21-46); MONOCYTES ABSOLUTE AUTO 0.84 K/mm3 (0.16-1.47); MONOCYTES PERCENT AUTO 7 % (4-13); Mean Corpuscular HGB 30.2 pg (26.0-34.0); Mean Corpuscular HGB Conc 33.9 g/dL (31.5-36.5); Mean Corpuscular Volume 89 fL (80-100); Mean Platelet Volume 10.6 fL (9.1-12.4); NEUTROPHILS ABSOLUTE AUTO 8.45 K/mm3 (1.96-9.15); NEUTROPHILS PERCENT AUTO 74 % (41-73); Platelet Count 309 K/mm3 (150-400); RDW Coefficient Variation 14.7 % (11.7-14.2); RDW Standard Deviation 47.9 fL (35.1-46.3); White Blood Cell Count 11.36 K/mm3 (4.00-11.30)
[2023-08-16 04:57] LABS: Albumin, Blood 3.7 g/dL (3.4-5.0); Albumin/Globulin Ratio 1.2 (0.8-1.8); Bilirubin, Total 0.9 mg/dL (0.1-1.0); Bun/Creatinine Ratio 12.1 (12.0-20.0); Calcium, Blood 8.7 mg/dL (8.5-10.1); Creatinine, Blood 1.07 mg/dL (0.60-1.20); Globulin, Blood 3.1 g/dL (2.2-4.0); Potassium, Blood 3.6 mmol/L (3.5-5.5); Total Protein, Blood 6.8 g/dL (6.4-8.2)
[2023-08-16] MEDS ORDERED: Clarify Drug Order XX ONE (05:05)
--- NOTE | 2023-08-16 05:13 | NUR ---
SHIFT SUMMARY. SHIFT HAS BEEN UNREMARKABLE. PT AOX4, PLEASANT, COOPERATIVE WITH CARE, CALLS APPROPRIATELY, ABLE TO MAKE NEEDS KNOWN. SOMEWHAT ANXIOUS BUT HAS BEEN ABLE TO SLEEP WELL OVERNIGHT. HEPARIN INFUSING THROUGHOUT SHIFT PER EMAR OUTSIDE OF ONE 1 HOUR PAUSE PER PHARMACY ORDER EARLY IN SHIFT. SEE RELATED NOTE FOR DETAILS. VITALS HAVE BEEN STABLE. PT HAS DENIED PAIN THROUGHOUT SHIFT. TELE ON THROUGHOUT SHIFT WITH NO ACUTE CHANGES OR EVENTS THUS FAR. PT REMAINS INDEPENDENT WITHIN ROOM AND CALLS APPROPRIATELY FOR ASSISTANCE. BED LOCKED IN LOWEST POSITION. CALL LIGHT LEFT WITHIN REACH. CONTINUING TO MONITOR.
[2023-08-16 07:21] VITALS: BP 112/77
[2023-08-16] MEDS ORDERED: Lactated Ringer's 1,000 ML IV SCH (08:00)
[2023-08-16 15:01] VITALS: BP 120/67
[2023-08-16] MEDS ORDERED: XARELTO20 MG PO (15:39)
--- NOTE | 2023-08-16 16:53 | NUR ---
PT DISCHARGE TO HOME WITH DISCHARGE ORDERS. PT WAS GIVEN A DOSE OF 20MG XARELTO AFTER HEPARIN INFUSION. PT ABLE TO SHOWER PRIOR TO DC. AMBULATING INDEPENDENTLY IN THE ROOM. DENIES ANY KIND OF PAIN, DIZZINESS OR NAUSEA. VITALS HAS BEEN STABLE. 1L OF LR WAS INFUSED. FAMILY AT THE BEDSIDE ABLE TO PROVIDE TRANSPORTAION. PT WAS GIVEN EDUCATION ABOUT PO XARELTO. WRITTEN MATERIALS PROVIDED WELL. PT VERBALIZED UNDERSTANDING. PT TO FF-UP WITH DR MARKS WITHIN 1-2 WEEKS. NO OTHER ISSUES REPORTED. ALL BELONGINGS SENT WITH THE PT. ACCOMPANIED VIA WHEELCHAIR FOR TRANSPORT
[2023-08-16] MEDS ORDERED: Rivaroxaban 10 MG Tab PO ONE (17:00)
== END 2023-08-16 16:40 | disposition home or self-care (01) ==
LOC: ER 06:54 → MEDS 06:55
PROVIDERS: Emergency Medicine; Student in an Organized Health Care Education/Training Program; ADMIT Internal Medicine
DX: N28.0 Ischemia and infarction of kidney (principal); R41.82 Altered mental status, unspecified; E83.52 Hypercalcemia; R74.02 Elevation of levels of lactic acid dehydrogenase [LDH]; C81.90 Hodgkin lymphoma, unspecified, unspecified site; D36.10 Benign neoplasm of peripheral nerves and autonomic nervous system, unspecified
CPT/HCPCS: 36415; 74177; 80053; 80061; 81003; 83605; 83615; 83690; 85025; 85520; 85610; 85730; 87040; 93005; 93010; 93306; 96361; 96365; 96366; 96374-59; 96375-59; 99285-25; A9270; G0378; J1644; J1885; J2405; J7120; Q9967

== ENCOUNTER 2024-08-21 12:45 | Emergency (ER) | payer OTHER, MEDICARE ==
[~2024-08-21] VITALS: Ht 162.6 cm; Wt 49.9 kg
[~2024-08-21 12:45] MED LIST changes: +XARELTO20 MG PO
[2024-08-21 13:02] VITALS: BP 120/85
[2024-08-21 13:34] LABS: BASOPHILS PERCENT AUTO 2 % (0-2); EOSINOPHILS ABSOLUTE AUTO 0.18 K/mm3 (0.00-0.68); EOSINOPHILS PERCENT AUTO 3 % (0-6); Hematocrit 42.1 % (37.0-53.0); Hemoglobin 14.1 g/dL (13.5-17.5); IMMATURE GRAN ABSOLUTE AUTO 0.01 K/mm3 (0.00-0.10); IMMATURE GRAN PERCENT AUTO 0 % (0-1); LYMPHOCYTES ABSOLUTE AUTO 1.62 K/mm3 (0.84-5.20); LYMPHOCYTES PERCENT AUTO 24 % (21-46); MONOCYTES PERCENT AUTO 7 % (4-13); Mean Corpuscular HGB 30.2 pg (26.0-34.0); Mean Corpuscular HGB Conc 33.5 g/dL (31.5-36.5); Mean Corpuscular Volume 90 fL (80-100); Mean Platelet Volume 10.4 fL (9.1-12.4); NEUTROPHILS ABSOLUTE AUTO 4.34 K/mm3 (1.96-9.15); NEUTROPHILS PERCENT AUTO 64 % (41-73); Platelet Count 308 K/mm3 (150-400); RDW Coefficient Variation 14.1 % (11.7-14.2); RDW Standard Deviation 46.7 fL (35.1-46.3); Red Blood Cell Count 4.67 M/mm3 (4.30-5.90); White Blood Cell Count 6.75 K/mm3 (4.00-11.30)
[2024-08-21 14:18] LABS: Albumin, Blood 3.9 g/dL (3.4-5.0); Albumin/Globulin Ratio 1.1 (0.8-1.8); Bilirubin, Total 0.5 mg/dL (0.1-1.0); Bun/Creatinine Ratio 14.8 (12.0-20.0); Calcium, Blood 9.1 mg/dL (8.5-10.1); Creatinine, Blood 1.15 mg/dL (0.60-1.20); Globulin, Blood 3.6 g/dL (2.2-4.0); Potassium, Blood 3.8 mmol/L (3.5-5.5); Total Protein, Blood 7.5 g/dL (6.4-8.2)
[2024-08-21 15:24] LABS: Source, Urine Clean Catch
[2024-08-21 15:29] LABS: Appearance, Urine Hazy (Clear); Bilirubin, Urine Neg (Neg); Blood, Urine 1+ (Neg); Glucose Qualitative, Urine Neg (Neg); Ketones, Urine Neg (Neg); Leukocyte Esterase, Urine Neg (Neg); Nitrite, Urine Neg (Neg); Protein, Urine 1+ (Neg); Specific Gravity, Urine 1.025 (1.003-1.022); Urobilinogen, Urine NORM (Normal)
[2024-08-21 15:43] LABS: Color, Urine Pale Yellow (P-Yellow)
[2024-08-21 15:45] LABS: Hyaline Casts 0-2 /lpf (0-2); Mucus Light (0-Heavy); Red Blood Cells, Urine 0-2 /hpf (0-2); Squamous Epithelial Cells Rare /hpf (Few); White Blood Cells, Urine 0-2 /hpf (0-5)
[2024-08-21 15:46] LABS: Bacteria Mod /hpf
[2024-08-21 15:47] LABS: Spermatozoa Many /hpf
[2024-08-21] MEDS ORDERED: AMOCLA875 PO (16:16)
[2024-08-21 16:57] LABS: Chlamydia Trachomatis Urine NOT DETECTED (NOT DETECT); Neisseria Gonorrhoea Urine NOT DETECTED (NOT DETECT)
== END 2024-08-21 16:24 | disposition home or self-care (01) ==
LOC: ER 12:45
PROVIDERS: Physician Assistant; Student in an Organized Health Care Education/Training Program
DX: R39.15 Urgency of urination (principal); R30.0 Dysuria; S61.451A Open bite of right hand, initial encounter; E89.0 Postprocedural hypothyroidism; Z59.89 Other problems related to housing and economic circumstances; W54.0XXA Bitten by dog, initial encounter
CPT/HCPCS: 51798; 80053; 81001; 85025; 87086; 87491; 87591; 99283